=== PATIENT | male | born 1975 | race Caucasian/White ===

== ENCOUNTER 2024-02-20 07:55 | Outpatient (CLI) | payer OTHER, SELFPAY | END 2024-02-20 07:56 | disposition home or self-care (01) | LOC: NFLDREF 03-10 12:35 | PROVIDERS: PCP Nurse Practitioner Family; Referring Provider Nurse Practitioner Family; Visit Provider Nurse Practitioner Family | DX: E78.2 Mixed hyperlipidemia (principal); Z13.0 Encounter for screening for diseases of the blood and blood-forming organs and certain disorders involving the immune mechanism; E53.8 Deficiency of other specified B group vitamins; Z12.5 Encounter for screening for malignant neoplasm of prostate | CPT/HCPCS: 80053; 80061; 82607; 85025; G0103 ==

== ENCOUNTER 2025-03-05 08:08 | Outpatient (CLI) | payer OTHER, SELFPAY | END 2025-03-05 08:09 | disposition home or self-care (01) | PROVIDERS: PCP Nurse Practitioner Family; Visit Provider Nurse Practitioner Family | DX: Z00.00 Encounter for general adult medical examination without abnormal findings (principal); E53.8 Deficiency of other specified B group vitamins; E78.2 Mixed hyperlipidemia; Z12.5 Encounter for screening for malignant neoplasm of prostate; Z13.0 Encounter for screening for diseases of the blood and blood-forming organs and certain disorders involving the immune mechanism; Z13.228 Encounter for screening for other metabolic disorders | CPT/HCPCS: 80053; 80061; 82607; 85025; G0103 ==

== ENCOUNTER 2025-04-21 13:30 | Outpatient (CLI) | payer OTHER, SELFPAY ==
--- NOTE | 2025-04-21 14:00 | CRLHL7_ITS ---
For Patients: As a result of the Century Cures Act, medical imaging exams and procedure reports are released immediately into your electronic medical record. You may view this report before your referring provider. If you have questions, please contact your health care provider. INDICATION: Right-sided motor real. Hearing loss. TECHNIQUE: High-resolution CT images of the bilateral petrous temporal bones were obtained without contrast. Multiplanar reconstructions. FINDINGS: Right ear: External auditory canal is normally patent. Scutum appears sharp. There is thickening of the right tympanic membrane with an indwelling tympanostomy tube. Appearance consistent with chronic inflammation, tympanosclerosis or other postoperative change. The ossicular chain appears intact. Prussak`s space and the epitympanum are clear. There is opacification of the sinus tympani but no convincing adjacent bony erosion. Mucosal thickening in a few inferior mastoid air cells. Cochlea, vestibule and semicircular canals are unremarkable. Left ear: The external auditory canal normally patent. The middle ear cavity is clear. The ossicular chain appears normal. Mastoid air cells are well developed and clear. The cochlea, vestibule and semicircular canals. IMPRESSION: 1. Thickening of the right tympanic membrane with myringotomy tube in place. Opacification of sinus tympani and few mastoid air cells consistent with chronic inflammation. The epitympanum is clear. 2. 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 Please note that all CT scans at this facility use dose modulation, iterative reconstruction, and/or weight-based dosing when appropriate to reduce radiation dose to as low as reasonably achievable. Dictated by Chao Quigley MD @ 04/21/2025 5:53:35 PM (Electronically Signed)
== END 2025-04-21 13:31 | disposition home or self-care (01) ==
LOC: CT 13:31
PROVIDERS: PCP Nurse Practitioner Family; Visit Provider Otolaryngology
DX: H92.11 Otorrhea, right ear (principal)
CPT/HCPCS: 70480

== ENCOUNTER 2025-07-30 09:30 | Outpatient (CLI) | payer OTHER, SELFPAY | END 2025-07-30 09:31 | disposition home or self-care (01) | LOC: NFLDREF 08-02 18:23 | PROVIDERS: PCP Nurse Practitioner Family; Referring Provider Nurse Practitioner Family | DX: R19.7 Diarrhea, unspecified (principal) | CPT/HCPCS: 87177; 87209; 87493; 87507 ==